=== PATIENT | female | born 1975 | race Caucasian/White ===

== ENCOUNTER → 2019-03-26 | Outpatient (CLI) | payer MEDICAID ==
[~2019-03-26] MED LIST: ASPI-630 PO; GADOTERATE 7.5 MMOL/15ML VIAL. IVP ONE
--- NOTE | 2019-03-26 16:21 | KCIC ---
BRAIN WO/W CONTRAST Date: 03/26/2019 11:00 AM Indication: Acute stabbing headache, slurred speech for 12 days. History of multiple sclerosis. History of ADEM, status post brain biopsy in 2019. Comparison: None. Technique: Multiplanar multisequence MRI of the brain was performed with and without intravenous contrast using the standard protocol. 12 cc Dotarem contrast was administered intravenously during the exam. Findings: No acute infarct. No acute hemorrhage. The ventricles are normal in size and configuration without hydrocephalus. Left posterior frontal lobe peripherally enhancing lesion measuring 1.5 cm. There are approximately an additional greater than 20 foci of abnormal T2/FLAIR hyperintense signal in the periventricular, subcortical, and pericallosal white matter with areas of confluence. None of these foci demonstrate T1 hypointensity. There is infratentorial abnormal T2/FLAIR hyperintense signal in the cerebral peduncles, ana lilia, and middle cerebellar peduncles. Postsurgical changes of the right temporal deep hole and biopsy. Gradient susceptibility artifact along the biopsy tract from chronic postsurgical blood products. Left parietal developmental venous anomaly. The pituitary and sella are normal. No Chiari malformation. The visualized upper cervical spine is normal. The visualized orbits and globes are normal. The visualized paranasal sinuses are clear. The mastoid air cells are clear. Normal flow voids within the vertebral, basilar, and internal carotid arteries indicating patency. IMPRESSION: Left posterior frontal lobe peripherally enhancing lesion, most likely representing an area of active demyelination given patient's history of demyelinating disease. Numerous additional foci of abnormal signal in the deep white matter consistent with patient's history of multiple sclerosis. Findings were called to Cindy at Dr. Olmos's office at 4:00 PM on 03/26/2019. FOR INTERNAL CODING PURPOSES RESULT CODE: (C) Electronically signed by: Tres Lam MD (03/26/2019 4:18 PM) [facility]
== END | disposition home or self-care (01) ==
LOC: KCIC MRI 10:29
PROVIDERS: ATTEND Psychiatry & Neurology Neurology with Special Qualifications in Child Neurology
DX: G93.89 Other specified disorders of brain (principal); G04.00 Acute disseminated encephalitis and encephalomyelitis, unspecified
CPT/HCPCS: 70553; A9575

== ENCOUNTER → 2019-10-20 | Outpatient (CLI) | payer MEDICAID ==
[~2019-10-20] MED LIST changes: +GLAT20SY SQ
--- NOTE | 2019-10-20 16:01 | KCIC ---
MRI Brain with and without contrast History:Multiple sclerosis, history of brain biopsy Technique: Multiplanar, multi sequential pre and postcontrast MR imaging was performed of the brain. Comparison: March 26, 2019 Findings: There is no evidence of recent infarct or cytotoxic edema. The ventricles, sulci, and cisterns are within normal limits in size and configuration. There is no significant midline shift, intraaxial mass effect, or focal abnormal extra-axial fluid collection. As seen previously, there are multiple foci of T2 and FLAIR hyperintense signal abnormality of the supratentorial parenchyma bilaterally and also of the bilateral ana lilia and middle cerebral peduncles, overall moderate signal abnormality present. Several lesions have a perpendicular orientation relative to the lateral ventricles. Previously seen focus of the right canales radiata is somewhat smaller and less hyperintense such as seen axial image 15 series 7. Previously seen enhancing lesion of the left centrum semiovale is also smaller and previously seen associated enhancement has resolved. No new T2/FLAIR hyperintense lesion or abnormal intracranial enhancement is identified. There is preservation of the major intracranial flow-voids at the skull base. The cerebellar tonsils are normal in location. There is no significant abnormality of the pineal gland or pituitary gland. There is patchy very minimal ethmoid air cell mucosal thickening. The mastoid air cells are aerated. There is preserved marrow signal of the clivus. Impression: 1. There is again evidence of multiple sclerosis, lesions stable to smaller as stated. No new FLAIR hyperintense lesion or enhancement is identified. Previously seen enhancement of lesion of the left centrum semiovale has resolved. Electronically signed by: Tres Herrera MD (10/20/2019 3:58 PM) [place] [id number]
== END ==
LOC: KCIC MRI 14:00
PROVIDERS: ATTEND Psychiatry & Neurology Neurology with Special Qualifications in Child Neurology
DX: G35 Multiple sclerosis (principal)
CPT/HCPCS: 70553; A9575

== ENCOUNTER → 2020-05-25 | Outpatient (CLI) | payer MEDICAID ==
[~2020-05-25] MED LIST changes: +BACL10TA PO; +CHOL500050 PO; -GADOTERATE 7.5 MMOL/15ML VIAL. IVP ONE; +MULT-121 PO; +NAPR220T70 PO; +PSYL0.5215 PO; +SERT50TA PO
== END ==
LOC: LAB 12:54
PROVIDERS: ATTEND Orthopaedic Surgery
DX: Z01.812 Encounter for preprocedural laboratory examination (principal); G56.02 Carpal tunnel syndrome, left upper limb; Z20.822 Contact with and (suspected) exposure to COVID-19
CPT/HCPCS: U0003

== ENCOUNTER 2020-05-28 06:58 | Day surgery (SDC) | payer MEDICAID ==
[~2020-05-28] VITALS: Ht 165.1 cm; Wt 74.8 kg
[~2020-05-28 06:58] MED LIST changes: +HYDROmorphone 2 MG/ML VIAL IVP PRN; +IV RINGERS,LACTATED 1000ML 1,000 ML IV SCH; +MORPHINE SULFATE 2 MG/ML VIAL. IVP PRN; +PROCHLORPERAZINE 10 MG/2 ML VIAL. IVP PRN; +ceFAZolin SODIUM IV Push 1 GM VIAL. IVP ONE; +fentaNYL PF VIAL 100 MCG/2 ML VIAL IVP PRN
[2020-05-28] MEDS ORDERED: BUPIVACAINE MPF 0.25% 30 ML VIAL. ONE (09:04)
[2020-05-28] MEDS ORDERED: MIDAZOLAM HCL/PF 2 MG/2 ML VIAL. ONE (09:06)
[2020-05-28] MEDS ORDERED: LIDOCAINE 2% PF 5 ML VIAL. ONE (09:10)
[2020-05-28] MEDS ORDERED: PROPOFOL 50 ML IV ONE (09:34)
[2020-05-28] MEDS ORDERED: KETOROLAC 30 MG/ML VIAL. ONE (09:36)
--- NOTE | 2020-05-28 10:00 | PDOC4 ---
Operative Note Operative Note Date of surgery: 05/28/2020 Preoperative diagnosis: Left carpal tunnel syndrome and left trigger thumb Postoperative diagnosis: Same with moderate median nerve compression at the carpal tunnel Operative procedure: Left carpal tunnel release, left trigger thumb release Surgeon: Jeffrey Fagoting Machine Operator: Pernell mann Anesthesia: Zaleski block Estimated blood loss: 1 cc Complications: None Operative indications: Please see my preoperative clinic note for detailed operative indications and note that we had covered the EMG results compression of the median nerve and the operative treatment of carpal tunnel release the possibility of nerve or blood vessel damage incomplete relief infection in cisional tenderness among others. She also presents today with very symptomatic triggering of her left thumb and we talked about nonoperative measures and the possibility of operative release. She prefers to go ahead with definitive treatment today and acknowledges the possibility of nerve or blood vessel damage incisional tenderness pain on grasp among other issues and we will add this to the planned carpal tunnel release procedure based on her informed consent Operative text: Patient was identified procedure verified patient placed in the supine position on operating table. After adequate amounts of Tess block anesthesia were administered the left upper extremity was prepped and draped in standard sterile fashion. After timeout was performed patient procedure identified and verified an incision was made longitudinally just distal to the distal palmar crease dissection carried out down to the transverse carpal ligament which was divided sharply and initially with the scalpel and then at its proximal and distal extent via small blunt tipped Metzenbaum scissors. Full release was verified visually and palpably and the median nerve was noted to have moderate compression no synovitis or compromise of the flexor tendons in the carpal tunnel. Attention was then turned to the left thumb where a transverse incision was made at the thumb flexion crease at its base. Neurovascular bundles were isolated and midline incision was made sharply with the scalpel and release of the A1 carolin completed with tenotomy scissors complete release was verified and triggering was eliminated. Thorough irrigation carried out normal saline solution bleeding points controlled by electrocautery and closure of both incisions by nylon suture sterile soft dressings were applied fingers were noted be warm pink on deflation of tourniquet patient was returned to recovery room in stable condition having tolerated procedure well. Pernell mann was present for the procedure assisted in prepping draping retraction closure and dressings HUBERT CERNA MD May 28, 2020 10:00
[2020-05-28 10:30] VITALS: BP 110/72
[2020-05-28] MEDS ORDERED: HYDR-2765 PO (11:28)
--- NOTE | 2020-05-28 11:29 | DISCH ---
DISCHARGE INSTRUCTIONS Condition on Discharge Condition on Discharge: Stable Activity After Discharge Activity Instructions for Disc: Other, see below (Avoid hard grasp with left hand, fine motor use permitted such as eating writing typing in a limited fashion as symptomatically tolerated) Weight Bearing Status after Di: Other, see below (Limited weightbearing to protect incisions fine motor use only) Diet after Discharge Diet after Discharge: Regular Wound Incision Care Wound/Incision Care: Keep wound elevated, Do not change dressing (Keep dressing clean and dry and change only if soiled) Contacting the [facility] after DC Call your doctor for: Concerns you may have Follow-Up Follow up with: Dr. Murphy or Delia 10 days postop HUBERT MURPHY MD May 28, 2020 11:29
[2020-05-28] MEDS ORDERED: HYDROcodone/APAP 7.5/325MG 1 TAB TABLET ONE (11:33)
[2020-05-28] MEDS ORDERED: HYDROcodone/APAP 7.5/325MG 1 TAB TABLET PO ONE (12:00)
== END 2020-05-28 11:45 | disposition home or self-care (01) ==
LOC: SURG 06:58
PROVIDERS: ATTEND Orthopaedic Surgery
DX: G56.02 Carpal tunnel syndrome, left upper limb (principal); M65.312 Trigger thumb, left thumb; F41.9 Anxiety disorder, unspecified; F32.9 Major depressive disorder, single episode, unspecified; Z87.891 Personal history of nicotine dependence; Z79.899 Other long term (current) drug therapy; Z98.890 Other specified postprocedural states
CPT/HCPCS: 26055; 64721; 81025; A4930; A6402; J0690; J1885; J2250; J2704; A4657; A6452; J3490